=== PATIENT | female | born 1960 | race Caucasian/White ===

== ENCOUNTER 2017-09-28 17:13 | Emergency (ER) | payer OTHER ==
--- NOTE | 2017-09-28 18:04 | ER ---
Nurse's Notes [facility] Name: Ciera Bahena Age: 57 yrs Sex: Female : 1960 Arrival Date: 09/28/2017 Time: 17:16 Bed 6 Private MD: Diagnosis: Contact with and (suspected) exposure to hazardous, chiefly nonmedicinal, chemicals Presentation: 09/28 17:51 Presenting complaint: Patient states: I work at the [employer] and they sprayed some chemical about a week ago and since then everyone has been having the headaches and stomach aches and diarrhea and they wanted us to come get checked out." Pt reports headache in frontal area, also reports stomach pain and diarrhea on Monday and a sore throat 2 days ago. Transition of care: patient was not received from another setting of care. Onset of symptoms was September 28, 2017. Risk Assessment: Do you want to hurt yourself or someone else? Patient reports no desire to harm self or others. Initial Sepsis Screen: Does the patient meet any 2 criteria? No. Patient's initial sepsis screen is negative. Does the patient have a suspected source of infection? No. Patient's initial sepsis screen is negative. Care prior to arrival: None. 17:51 Method Of Arrival: Ambulatory ph 17:51 Acuity: JOSE R 4 ph Historical: - Allergies: 17:57 Keflex; ph 17:57 Codeine; ph - Home Meds: 17:57 levothyroxine oral [Active]; Alprazolam Oral [Active]; ph - PMHx: 17:57 Hypothyroidism; ph - PSHx: 17:57 Hysterectomy; ph - Immunization history:: Adult Immunizations unknown. - Social history:: Smoking status: Patient uses tobacco products, denies chronic smoking, but will smoke occasionally. - Ebola Screening: : No symptoms or risks identified at this time. Screenin:58 Abuse screen: Denies threats or abuse. Denies injuries from another. Nutritional ph screening: No deficits noted. Tuberculosis screening: No symptoms or risk factors identified. Fall Risk None identified. Assessment: 17:58 General: Appears in no apparent distress. comfortable, well groomed, Behavior is calm, ph cooperative, appropriate for age, Denies fever, feeling ill. Pain: Complains of pain in head. Neuro: Level of Consciousness is awake, alert, obeys commands, Oriented to person, place, time, situation, Reports headache in entire frontal area, Denies dizziness. Cardiovascular: Denies chest pain, lightheadedness, nausea, shortness of breath, Capillary refill < 3 seconds in bilateral fingers Patient's skin is warm and dry. Respiratory: Airway is patent Respiratory effort is even, unlabored, Respiratory pattern is regular, symmetrical, Breath sounds are clear bilaterally. Denies cough, shortness of breath. GI: Patient currently denies abdominal pain, diarrhea, nausea, vomiting, reports abdominal pain and diarrhea approx 1 week ago. : No signs and/or symptoms were reported regarding the genitourinary system. Derm: Skin is intact, is healthy with good turgor, Skin is pink, warm \\T\\ dry. Musculoskeletal: Circulation, motion, and sensation intact. Range of motion: intact in all extremities. Vital Signs: 17:55 BP 153 / 77; Pulse 78; Resp 18; Temp 98.1; Pulse Ox 98% on R/A; Weight 81.65 kg; Height ph 5 ft. 4 in. (162.56 cm); Pain 5/10; 17:55 Body Mass Index 30.90 (81.65 kg, 162.56 cm) ph ED Course: 17:16 Patient arrived in ED. as 17:42 [facility] jr8 17:42 Alonzo Blandon MD is Attending Physician. jrGabriel 17:51 Joan Gerard, RN is Primary Nurse. ph 17:55 Triage completed. ph 17:58 Arm band placed on. ph 17:58 Patient has correct armband on for positive identification. Placed in gown. Bed in low ph position. Call light in reach. Side rails up X 1. Pulse ox on. NIBP on. 18:18 No provider procedures requiring assistance completed. Patient did not have IV access ph during this emergency room visit. Administered Medications: No medications were administered Outcome: 18:04 Discharge ordered by . jr8 18:19 Discharged to home ambulatory. ph 18:19 Condition: good 18:19 Discharge instructions given to patient, Instructed on discharge instructions, follow up and referral plans. Demonstrated understanding of instructions, follow-up care. 18:19 Patient left the ED. ph Signatures: Susy Ocampo as Kt Vasquez PA PA jr8 Joan Gerard, RN RN ph
--- NOTE | 2017-09-28 18:04 | EDPHYS ---
Physician Documentation [facility] Name: Ciera Bahena Age: 57 yrs Sex: Female : 1960 Arrival Date: 09/28/2017 Time: 17:16 Bed 6 Private MD: ED Physician Alonzo Blandon HPI: 09/28 18:00 This 57 yrs old Female presents to ER via Ambulatory with complaints of jr8 Chemical Inhalation - 09/22. 18:00 Patient stated that they had a possible chemical exposure at there office and wanted jr8 everyone to be evaluated. Stated that she has had mild headache but otherwise feels normal. Denies any other s/s. Onset: The symptoms/episode began/occurred 5 day(s) ago. Severity of symptoms: At their worst the symptoms were very mild in the emergency department the symptoms are unchanged. The patient has not experienced similar symptoms in the past. The patient has not recently seen a physician. Historical: - Allergies: 17:57 Keflex; ph 17:57 Codeine; ph - Home Meds: 17:57 levothyroxine oral [Active]; Alprazolam Oral [Active]; ph - PMHx: 17:57 Hypothyroidism; ph - PSHx: 17:57 Hysterectomy; ph - Immunization history:: Adult Immunizations unknown. - Social history:: Smoking status: Patient uses tobacco products, denies chronic smoking, but will smoke occasionally. - Ebola Screening: : No symptoms or risks identified at this time. ROS: 18:00 Eyes: Negative for injury, pain, redness, and discharge, ENT: Negative for injury, jr8 pain, and discharge, Neck: Negative for injury, pain, and swelling, Cardiovascular: Negative for chest pain, palpitations, and edema, Respiratory: Negative for shortness of breath, cough, wheezing, and pleuritic chest pain, Abdomen/GI: Negative for abdominal pain, nausea, vomiting, diarrhea, and constipation, Back: Negative for injury and pain, MS/Extremity: Negative for injury and deformity, Skin: Negative for injury, rash, and discoloration. 18:00 Neuro: Positive for headache, Negative for altered mental status, dizziness, gait disturbance, hearing loss, loss of consciousness, numbness, seizure activity, speech changes, syncope, near syncope, tingling, tinnitus, tremor, visual changes, weakness. Exam: 18:00 Head/Face: Normocephalic, atraumatic. Eyes: Pupils equal round and reactive to light, jr8 extra-ocular motions intact. Lids and lashes normal. Conjunctiva and sclera are non-icteric and not injected. Cornea within normal limits. Periorbital areas with no swelling, redness, or edema. ENT: Nares patent. No nasal discharge, no septal abnormalities noted. Tympanic membranes are normal and external auditory canals are clear. Oropharynx with no redness, swelling, or masses, exudates, or evidence of obstruction, uvula midline. Mucous membranes moist. Neck: Trachea midline, no thyromegaly or masses palpated, and no cervical lymphadenopathy. Supple, full range of motion without nuchal rigidity, or vertebral point tenderness. No Meningismus. Chest/axilla: Normal chest wall appearance and motion. Nontender with no deformity. No lesions are appreciated. Cardiovascular: Regular rate and rhythm with a normal S1 and S2. No gallops, murmurs, or rubs. Normal PMI, no JVD. No pulse deficits. Respiratory: Lungs have equal breath sounds bilaterally, clear to auscultation and percussion. No rales, rhonchi or wheezes noted. No increased work of breathing, no retractions or nasal flaring. Abdomen/GI: Soft, non-tender, with normal bowel sounds. No distension or tympany. No guarding or rebound. No evidence of tenderness throughout. Back: No spinal tenderness. No costovertebral tenderness. Full range of motion. Skin: Warm, dry with normal turgor. Normal color with no rashes, no lesions, and no evidence of cellulitis. MS/ Extremity: Pulses equal, no cyanosis. Neurovascular intact. Full, normal range of motion. Neuro: Awake and alert, GCS 15, oriented to person, place, time, and situation. Cranial nerves II-XII grossly intact. Motor strength 5/5 in all extremities. Sensory grossly intact. Cerebellar exam normal. Normal gait. Vital Signs: 17:55 BP 153 / 77; Pulse 78; Resp 18; Temp 98.1; Pulse Ox 98% on R/A; Weight 81.65 kg; Height ph 5 ft. 4 in. (162.56 cm); Pain 5/10; 17:55 Body Mass Index 30.90 (81.65 kg, 162.56 cm) ph MDM: 17:42 Patient medically screened. jr8 18:00 Data reviewed: vital signs, nurses notes, and as a result, I will discharge patient. jr8 Data interpreted: Pulse oximetry: on room air is 98 %. Interpretation: normal. Counseling: I had a detailed discussion with the patient and/or guardian regarding: the historical points, exam findings, and any diagnostic results supporting the discharge/admit diagnosis, the need for outpatient follow up, a family practitioner, to return to the emergency department if symptoms worsen or persist or if there are any questions or concerns that arise at home. ED course: Discussed with patient that her physical exam does not reveal anything acute. Vitals are within normal limits. Would advise to continue to watch for any other symptoms. Patient and rest of staff could not identify chemical that they were exposed to. Explained to her if she were to worsen to come back. Otherwise to f/u with PCP. . Administered Medications: No medications were administered Disposition: 18:38 Co-signature as Attending Physician, Alonzo Blandon MD. rn Disposition: 09/28/17 18:04 Discharged to Home. Impression: Contact with and (suspected) exposure to hazardous, chiefly nonmedicinal, chemicals. - Condition is Stable. - Medication Reconciliation Form, Thank You Letter, Antibiotic Education, Prescription Opioid Use form. - Follow up: Private Physician; When: 5 - 6 days; Reason: Recheck today's complaints, Continuance of care, Re-evaluation by your physician. - Problem is new. - Symptoms have improved. Signatures: Alonzo Blandon MD MD rn Roszak, Josh, PA PA jr8 Joan Gerard RN RN ph Corrections: (The following items were deleted from the chart) 18:19 18:04 09/28/2017 18:04 Discharged to Home. Impression: Contact with and (suspected) ph exposure to hazardous, chiefly nonmedicinal, chemicals. Condition is Stable. Forms are Medication Reconciliation Form, Thank You Letter, Antibiotic Education, Prescription Opioid Use. Follow up: Private Physician; When: 5 - 6 days; Reason: Recheck today's complaints, Continuance of care, Re-evaluation by your physician. Problem is new. Symptoms have improved. jr8
== END 2017-09-28 18:19 | disposition home or self-care (01) ==
LOC: ER 17:13
DX: R51 Headache (principal); Z77.098 Contact with and (suspected) exposure to other hazardous, chiefly nonmedicinal, chemicals; Z88.1 Allergy status to other antibiotic agents; Z88.5 Allergy status to narcotic agent; E03.9 Hypothyroidism, unspecified; Z72.0 Tobacco use
CPT/HCPCS: 99283

== ENCOUNTER 2019-02-01 11:07 | Emergency (ER) | payer OTHER ==
[2019-02-01] MEDS ORDERED: IBUPROFEN 400 MG TAB ONE (11:41)
[2019-02-01] MEDS ORDERED: IBUPROFEN 200 MG TAB PO ONE (11:50)
--- NOTE | 2019-02-01 12:09 | RAD REPORT ---
EXAM DESCRIPTION: RAD - Tib Fib Right - 02/01/2019 12:02 pm CLINICAL HISTORY: Right leg pain FINDINGS: No fracture is seen
--- NOTE | 2019-02-01 12:53 | ER ---
Nurse's Notes [facility] Name: Ciera Bahena Age: 59 yrs Sex: Female : 1960 Arrival Date: 02/01/2019 Time: 11:08 Bed 20 Private MD: Idalia Ma R Diagnosis: Right calf pain/sprain s/p fall Presentation: 02/01 11:20 Presenting complaint: Patient states: was standing of a ladder about 4-5 feet high, iw ladder fell over and landed on bottom, denies LOC or hitting head, c/o pain on bottom and right leg when walking. Transition of care: patient was not received from another setting of care. Onset of symptoms was February 01, 2019 at 08:00. Risk Assessment: Do you want to hurt yourself or someone else? Patient reports no desire to harm self or others. Initial Sepsis Screen: Does the patient meet any 2 criteria? No. Patient's initial sepsis screen is negative. Does the patient have a suspected source of infection? No. Patient's initial sepsis screen is negative. Care prior to arrival: None. 11:20 Method Of Arrival: Ambulatory iw 11:20 Acuity: JOSE R 3 iw Historical: - Allergies: 11:17 Codeine; ch 11:17 Keflex; ch - Home Meds: 11:29 levothyroxine oral [Active]; iw - PMHx: 11:29 Hypothyroidism; iw - PSHx: 11:29 Hysterectomy; iw - Immunization history:: Adult Immunizations up to date. - Social history:: Smoking status: Patient uses tobacco products, denies chronic smoking, but will smoke occasionally. - Ebola Screening: : Patient negative for fever greater than or equal to 101.5 degrees Fahrenheit, and additional compatible Ebola Virus Disease symptoms Patient denies exposure to infectious person Patient denies travel to an Ebola-affected area in the 21 days before illness onset No symptoms or risks identified at this time. Screenin:20 Abuse screen: Denies threats or abuse. Nutritional screening: No deficits noted. em Tuberculosis screening: No symptoms or risk factors identified. Fall Risk None identified. Assessment: 11:20 General: Appears in no apparent distress. comfortable, Behavior is calm, cooperative. em Pain: Complains of pain in buttocks and right leg Pain currently is 4 out of 10 on a pain scale. Quality of pain is described as sharp, shooting, throbbing, Pain began 3 hours ago. Is continuous, Alleviated by Aggravated by exercise, increased activity, weight bearing. Neuro: Level of Consciousness is awake, alert, obeys commands, Oriented to person, place, time, situation, Appropriate for age. Cardiovascular: Capillary refill < 3 seconds Patient's skin is warm and dry. Respiratory: Airway is patent Respiratory effort is even, unlabored, Respiratory pattern is regular, symmetrical. GI: Patient currently denies nausea, vomiting. Derm: Skin is intact, is healthy with good turgor, Skin is pink, warm \T\ dry. Musculoskeletal: Capillary refill < 3 seconds, Range of motion: limited in right knee Swelling absent. 12:20 Reassessment: Patient appears in no apparent distress at this time. Patient and/or em family updated on plan of care and expected duration. Pain level reassessed. Patient is alert, oriented x 3, equal unlabored respirations, skin warm/dry/pink. Patient states feeling better. 12:54 Reassessment: Patient appears in no apparent distress at this time. I agree with jaciel Mendez's assessment. Vital Signs: 11:20 BP 130 / 82; Pulse 94; Resp 18; Temp 98.0(O); Pulse Ox 99% on R/A; Weight 85.28 kg; iw Height 5 ft. 4 in. (162.56 cm); Pain 4/10; 11:20 Body Mass Index 32.27 (85.28 kg, 162.56 cm) iw ED Course: 11:08 Patient arrived in ED. ag5 11:08 Idalia Ma MD is Private Physician. ag5 11:13 Guillermo Dickinson MD is Attending Physician. kdr 11:13 Malika Horne, [place]OR[place] is Primary Nurse. iw 11:20 Arm band placed on. iw 11:20 Patient has correct armband on for positive identification. Bed in low position. Call em light in reach. Side rails up X2. Pulse ox on. NIBP on. 11:24 Triage completed. iw 12:03 Tib Fib Right XRAY In Process Unspecified. EDMS 12:51 Idalia Ma MD is Referral Physician. kdr 12:59 No provider procedures requiring assistance completed. Patient did not have IV access em during this emergency room visit. Administered Medications: 11:45 Not Given (Physician Discretion): Ibuprofen 800 mg PO once iw 11:52 Drug: Motrin 600 mg Route: PO; em 12:54 Follow up: Response: No adverse reaction; Pain is decreased iw Outcome: 12:52 Discharge ordered by . kdr 12:59 Discharged to home ambulatory. em 12:59 Condition: good 12:59 Discharge instructions given to patient, Instructed on discharge instructions, follow up and referral plans. medication usage, Demonstrated understanding of instructions, follow-up care, medications, Prescriptions given X 1. 13:03 Patient left the ED. em Signatures: Dispatcher [employer] EDAlexandra Field, RN RN ch Guillermo Dickinson MD MD kdr Munoz, Edgar, DIRECTOR SALES SUPPORT DIRECTOR SALES SUPPORT Malika Powell RN RN iw Dana Ghosh ag5
--- NOTE | 2019-02-01 12:53 | EDPHYS ---
Physician Documentation [facility] Name: Ciera Bahena Age: 59 yrs Sex: Female : 1960 Arrival Date: 02/01/2019 Time: 11:08 Bed 20 Private MD: Idalia Ma R ED Physician Guillermo Dickinson HPI: 02/01 14:24 This 59 yrs old Female presents to ER via Ambulatory with complaints of Fall kdr Injury. 14:24 Details of fall: The patient fell from a height, from a ladder, approximately 3 feet. kdr Onset: The symptoms/episode began/occurred suddenly, just prior to arrival. Associated injuries: The patient sustained lateral aspect of right calf. Severity of symptoms: At their worst the symptoms were mild, moderate, in the emergency department the symptoms are unchanged. The patient has not experienced similar symptoms in the past. The patient has not recently seen a physician. Historical: - Allergies: 11:17 Codeine; ch 11:17 Keflex; ch - Home Meds: 11:29 levothyroxine oral [Active]; iw - PMHx: 11:29 Hypothyroidism; iw - PSHx: 11:29 Hysterectomy; iw - Immunization history:: Adult Immunizations up to date. - Social history:: Smoking status: Patient uses tobacco products, denies chronic smoking, but will smoke occasionally. - Ebola Screening: : Patient negative for fever greater than or equal to 101.5 degrees Fahrenheit, and additional compatible Ebola Virus Disease symptoms Patient denies exposure to infectious person Patient denies travel to an Ebola-affected area in the 21 days before illness onset No symptoms or risks identified at this time. ROS: 14:24 Constitutional: Negative for fever, chills, and weight loss, Eyes: Negative for injury, kdr pain, redness, and discharge, Neck: Negative for injury, pain, and swelling, Cardiovascular: Negative for chest pain, palpitations, and edema, Respiratory: Negative for shortness of breath, cough, wheezing, and pleuritic chest pain, Abdomen/GI: Negative for abdominal pain, nausea, vomiting, diarrhea, and constipation, Back: Negative for injury and pain, : Negative for injury, bleeding, discharge, and swelling, Skin: Negative for injury, rash, and discoloration, Neuro: Negative for headache, weakness, numbness, tingling, and seizure activity. Psych: Negative for depression, anxiety, suicide ideation, homicidal ideation, and hallucinations, Allergy/Immunology: Negative for hives, rash, and allergies, Endocrine: Negative for neck swelling, polydipsia, polyuria, polyphagia, and marked weight changes, Hematologic/Lymphatic: Negative for swollen nodes, abnormal bleeding, and unusual bruising. 14:24 MS/extremity: Positive for pain, tenderness, of the lateral aspect of right calf. Exam: 14:24 Constitutional: This is a well developed, well nourished patient who is awake, alert, kdr and in no acute distress. 14:24 Musculoskeletal/extremity: Extremities: grossly normal except: noted in the lateral aspect of right calf: pain. Vital Signs: 11:20 BP 130 / 82; Pulse 94; Resp 18; Temp 98.0(O); Pulse Ox 99% on R/A; Weight 85.28 kg; iw Height 5 ft. 4 in. (162.56 cm); Pain 4/10; 11:20 Body Mass Index 32.27 (85.28 kg, 162.56 cm) iw MDM: 12:52 Patient medically screened. kdr 14:24 Data reviewed: vital signs, nurses notes, radiologic studies. kdr 02/01 11:41 Order name: Tib Fib Right XRAY; Complete Time: 12:32 kdr Administered Medications: 11:45 Not Given (Physician Discretion): Ibuprofen 800 mg PO once iw 11:52 Drug: Motrin 600 mg Route: PO; em 12:54 Follow up: Response: No adverse reaction; Pain is decreased iw Disposition: 02/01/19 12:52 Discharged to Home. Impression: Right calf pain/sprain s/p fall. - Condition is Stable. - Discharge Instructions: Musculoskeletal Pain. - Prescriptions for Diclofenac Sodium 75 mg Oral Tablet, Delayed Release (E.C.) - take 1 tablet by ORAL route 2 times per day; 15 tablet. - Medication Reconciliation Form, Thank You Letter, Work release form form. - Follow up: Idalia Ma MD; When: 2 - 3 days; Reason: If symptoms return, Further diagnostic work-up, Recheck today's complaints, Continuance of care, Re-evaluation by your physician. Signatures: Dispatcher [employer] Alexandra Moreno RN RN Guillermo Dickinson MD MD kdr Andrea Barrett, ACLS NURSE ACLS NURSE em Malika Horne, RN RN iw Corrections: (The following items were deleted from the chart) 13:03 12:52 02/01/2019 12:52 Discharged to Home. Impression: Right calf pain/sprain s/p fall. em Condition is Stable. Forms are Medication Reconciliation Form, Thank You Letter, Antibiotic Education, Prescription Opioid Use. Follow up: Idalia Ma; When: 2 - 3 days; Reason: If symptoms return, Further diagnostic work-up, Recheck today's complaints, Continuance of care, Re-evaluation by your physician. kdr
[2019-02-01 13:09] VITALS: BP 130/82; TEMP 98; O2SAT 99
== END 2019-02-01 13:03 | disposition home or self-care (01) ==
LOC: ER 11:07
DX: S86.811A Strain of other muscle(s) and tendon(s) at lower leg level, right leg, initial encounter (principal); W11.XXXA Fall on and from ladder, initial encounter; Y93.9 Activity, unspecified; Y92.9 Unspecified place or not applicable; Z72.0 Tobacco use; Z88.1 Allergy status to other antibiotic agents; Z88.5 Allergy status to narcotic agent; E03.9 Hypothyroidism, unspecified
CPT/HCPCS: 99284